=== PATIENT | male | born 1990 | race African-American/Black ===

== ENCOUNTER 2023-01-14 16:31 | Emergency (ER) | payer SELFPAY ==
[2023-01-14] MEDS ORDERED: Boostrix 0.5 ML (Tdap) VIAL (>/=7 yrs of age) ONE (17:34)
[2023-01-14] MEDS ORDERED: Lidocaine 4% Cream 5 GM TUBE w/ Tegaderm ONE (17:34)
== END 2023-01-14 18:08 | disposition home or self-care (01) ==
LOC: ERS 16:31
DX: S01.01XA Laceration without foreign body of scalp, initial encounter (principal); W22.8XXA Striking against or struck by other objects, initial encounter; Z23 Encounter for immunization
CPT/HCPCS: 12001; 90471; 90715

== ENCOUNTER 2023-01-23 17:37 | Emergency (ER) | payer SELFPAY | END 2023-01-23 18:39 | disposition left against medical advice (07) | LOC: ERS 17:37 | DX: Z53.21 Procedure and treatment not carried out due to patient leaving prior to being seen by health care provider (principal) ==

== ENCOUNTER 2023-01-24 14:37 | Emergency (ER) | payer OTHER, SELFPAY | END 2023-01-24 15:30 | disposition home or self-care (01) | LOC: ERS 14:37 | DX: S01.01XD Laceration without foreign body of scalp, subsequent encounter (principal); X58.XXXD Exposure to other specified factors, subsequent encounter ==

== ENCOUNTER 2023-03-31 17:48 | Emergency (ER) | payer SELFPAY ==
[2023-03-31] MEDS ORDERED: Acetaminophen 500 MG TAB ONE (18:13)
[2023-03-31] MEDS ORDERED: Ketorolac Tromethamine 30 MG/ML VIAL ONE (18:13)
[2023-03-31] MEDS ORDERED: diphenhydrAMINE 12.5 MG/5 ML UDCUP ONE (18:13)
[2023-03-31] MEDS ORDERED: Metoclopramide HCl 10 MG/2 ML VIAL ONE (18:13)
[2023-03-31] MEDS ORDERED: diphenhydrAMINE 50 MG/ML VIAL ONE (18:14)
[2023-03-31 19:12] LABS: #Eosinphils 0.1 thou/uL (0.0-0.7); #Monocytes 0.6 thou/uL (0.11-0.59); #Neutrophils 4.4 thou/uL (1.40-6.50); %Basophils 0.6 % (0.0-1.0); %Eosinophils 1.4 % (0.0-10.0); %Lymphocytes 27.5 % (21.0-51.0); %Monocytes 7.8 % (0.0-10.0); %Neutrophils 62.4 % (42.0-75.0); Hemoglobin 14.6 g/dL (14.0-18.0); Mean Corpuscular Hemoglobin 30.9 pg (27.0-31.0); Mean Corpuscular Volume 90.9 fl (78.0-98.0); Mean Platelet Volume 10.7 fL (7.4-10.4); Platelet Count 205 10x3/uL (130-400); RBC Distribution Width 11.8 % (11.5-14.5); Red Blood Cell (RBC) Count 4.73 mill/uL (4.70-6.10)
[2023-03-31 19:42] LABS: Albumin 4.2 g/dL (3.5-5.0); Anion Gap 13 mmol/L (10-20); BUN (Urea Nitrogen) 14 mg/dL (8.9-20.6); Bilirubin, Total 0.4 mg/dL (0.2-1.2); Calc. Creatinine Clearance 0 mL/min (70-130); Calcium 9.4 mg/dL (7.8-10.44); Carbon Dioxide 25 mmol/L (22-29); Chloride 104 mmol/L (98-107); Estimated GFR 77; Glucose 84 mg/dL (70-105); Potassium 4.2 mmol/L (3.5-5.1); Protein, Total 7.2 g/dL (6.0-8.3); Sodium 138 mmol/L (136-145)
[2023-03-31 19:43] LABS: ALT (SGPT) 22 U/L (8-55); AST (SGOT) 18 U/L (5-34); Alkaline Phosphatase 65 U/L (40-110)
== END 2023-03-31 22:18 | disposition home or self-care (01) ==
LOC: ERS 17:48
DX: R51.9 Headache, unspecified (principal); I49.3 Ventricular premature depolarization; R53.1 Weakness
CPT/HCPCS: 36415; 70450; 80053; 85025; 93005; 96365; 96366; 96375; J1200; J1885; J2765; Q0163

== ENCOUNTER 2023-07-28 17:07 | Emergency (ER) | payer SELFPAY ==
[2023-07-28 18:10] LABS: Bacteria/HPF None Seen HPF (None Seen); Bilirubin Negative (Negative); Blood, Urine 3+ (Negative); CAUTI Indications for Culture Acute Hematuria; Clarity Clear (Clear); Glucose, Urine (Dipstick) Normal (Negative); Ketone, Urine Negative (Negative); Leukocyte Negative Leu/uL (Negative); Nitrite Negative (Negative); Protein, Urine (Dipstick) 30 mg/dL (Neg-Trace); RBC/HPF Greater than 50 HPF (0-3); Specific Gravity, Urine 1.038 (1.002-1.036); Squamous Epithelial None Seen HPF (0-3)
[2023-07-28 18:12] LABS: Urine Culture Reflex No No
[2023-07-28] MEDS ORDERED: cefTRIAXone (ROCEPHIN) 500 MG VIAL ONE (18:58)
[2023-07-28] MEDS ORDERED: Lidocaine 1% MPF 2 ML VIAL ONE (18:58)
[2023-07-28 21:14] LABS: Chlam.trachomatis by PCR,Urine DETECTED (NotDetected); GC N.gonorrhoeae PCR,UrineVOID Not Detected (NotDetected)
[2023-07-28] MEDS ORDERED: Ipratropium/Albuterol 3 ML NEB ONE (21:43)
== END 2023-07-28 19:10 | disposition home or self-care (01) ==
LOC: ERS 17:07
DX: R31.0 Gross hematuria (principal)
CPT/HCPCS: 81001; 87491; 87591; 96372; 99283; J0696; J7620

== ENCOUNTER 2024-06-23 03:04 | Emergency (ER) | payer OTHER ==
[2024-06-23] MEDS ORDERED: Azithromycin 250 MG TAB ONE (03:34)
[2024-06-23] MEDS ORDERED: cefTRIAXone (ROCEPHIN) 500 MG VIAL ONE (03:35)
[2024-06-23] MEDS ORDERED: Lidocaine 1% PF 5 ML VIAL ONE (03:35)
[2024-06-23 04:35] LABS: Bacteria/HPF 1+ HPF (None Seen); Bilirubin Negative (Negative); Blood, Urine Negative (Negative); CAUTI Indications for Culture Dysuria,urgency,freq; Clarity Clear (Clear); Glucose, Urine (Dipstick) Normal (Negative); Ketone, Urine 10 mg/dL (Negative); Leukocyte 500 Leu/uL (Negative); Mucous/LPF Rare LPF (<2+); Nitrite Negative (Negative); Protein, Urine (Dipstick) 30 mg/dL (Neg-Trace); Specific Gravity, Urine 1.039 (1.002-1.036); Squamous Epithelial 0-3 HPF (0-3); Urobilinogen 3 mg/dL (Less than 2); WBC/HPF Greater than 50 HPF (0-3)
[2024-06-23 04:36] LABS: Urine Culture Reflex Yes Yes
[2024-06-24 15:03] LABS: Chlam.trachomatis by PCR,Urine Not Detected (NotDetected); GC N.gonorrhoeae PCR,UrineVOID DETECTED (NotDetected)
== END 2024-06-23 04:16 | disposition home or self-care (01) ==
LOC: ERS 03:04
DX: N34.2 Other urethritis (principal)
CPT/HCPCS: 81001; 87086; 87491; 87591; 96372; 99283; J0696